=== PATIENT | male | born 1945 | race Caucasian/White ===

== ENCOUNTER 2016-05-04 05:31 | Day surgery (SDC) | payer OTHER ==
[~2016-05-04 05:31] MED LIST: ALBUTEROL HFA60 DOSE IN; COUMADIN7.5 MG PO; DIGITEK0.25 MG PO; FUROSEMIDE20 MG PO; LORAZEPAM0.5 MG PO; METFORMIN HCL500 MG PO; MIRTAZAPINE30 MG PO; PERCOCET1 TA1 PO; SIMVASTATIN10 MG PO; WARFARIN SODIUM5 MG PO
--- NOTE | 2016-05-04 07:57 | Provider's Discharge Care Plan ---
Problem, Goal, Plan Problem List 1. S/P colonoscopy Goals: Screening Instructions: Follow up as needed, Take meds as directed, high fiber diet
--- NOTE | 2016-05-04 07:57 | Provider's Discharge Care Plan ---
Problem, Goal, Plan Problem List 1. S/P colonoscopy Goals: Screening Instructions: Follow up as needed, Take meds as directed, high fiber diet
[2016-05-04 09:10] VITALS: BP 129/57
--- NOTE | 2016-05-04 09:15 | OPERATIVE REPORT ---
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 PREOPERATIVE DIAGNOSIS: 1. Screening colonoscopy POSTOPERATIVE DIAGNOSIS: 1. Sigmoid diverticulosis PROCEDURE PERFORMED: 1. Colonoscopy ANESTHESIA: TIVA. INDICATIONS: The patient is a 70-year-old male whose last colonoscopy 10 years ago. asymptomatic. SURGICAL FINDINGS: Normal-appearing cecum, ascending, transverse, and descending colon. The patient was noted to have extensive sigmoid diverticulosis. The rectal vault appeared grossly normal. SURGICAL TECHNIQUE: The patient was brought to the operating room and placed in the left lateral decubitus position, where he was administered TIVA and monitored closely by anesthesia. After proper anesthesia had taken effect, a digital rectal examination revealed no masses or stenosis. This was followed by the passage of a fiberoptic video flexible Olympus colonoscope, which without difficulty negotiated to the cecum. The cecum was identified by anatomical landmarks and anterior abdominal wall ballottement. On withdrawing the scope, the aforementioned findings noted. The scope was then retroflexed, good view of the rectal vault obtained. No other pathology identified. The scope was completely withdrawn. The patient tolerated the procedure well and was transferred to the recovery room in stable condition. There were no intraoperative or anesthetic complications.
== END 2016-05-04 09:19 | disposition home or self-care (01) ==
LOC: OR SRH 05:31 → SCU SRH 06:26 → OR SRH 07:30
PROVIDERS: Specialist
PROC: 0DJD8ZZ Inspection of Lower Intestinal Tract, Via Natural or Artificial Opening Endoscopic (ICD-10-PCS; principal; 2016-05-04 07:30)
DX: Z12.11 Encounter for screening for malignant neoplasm of colon (principal); K57.30 Diverticulosis of large intestine without perforation or abscess without bleeding; Z79.01 Long term (current) use of anticoagulants; Z95.0 Presence of cardiac pacemaker; E11.9 Type 2 diabetes mellitus without complications; Z79.84 Long term (current) use of oral hypoglycemic drugs; I10 Essential (primary) hypertension
CPT/HCPCS: 29229; 29240; 50004; 60001; 83526; 90074; 94060